=== PATIENT | male | born 1940 | race Caucasian/White ===

== ENCOUNTER → 2016-08-04 | Outpatient (CLI) | payer OTHER ==
--- NOTE | 2016-08-04 15:28 | US ---
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 Shoulder pain. Prior cuff repair. Technique: Sonographic evaluation of the rotator cuff was performed by myself utilizing dynamic vinh uvers. Findings: A high-grade supraspinatus tendon tear is identified. There is marked disorganization of fibers of the distal supraspinatus tendon associated with a fluid-filled cleft through the tendon dis tally proximal to the greater tuberosity attachment. The infraspinatus tendon is partially visualized along the anterior aspect and appears intact. The s ubscapularis is thin but intact. The long head biceps tendon is not visualized within the shoulder j oint and may have undergone prior tenodesis or rupture. Impression: 1. High-grade distal supraspinatus tendon tear. 2. Subscapularis thinning, without full-thickness defect. 3. Nonvisualization of long head biceps within the shoulder joint, rupture versus prior tenodesis.
== END ==
LOC: FIMAGING 12:48
DX: S46.911A Strain of unspecified muscle, fascia and tendon at shoulder and upper arm level, right arm, initial encounter (principal); M75.81 Other shoulder lesions, right shoulder